=== PATIENT | male | born 1950 | race Caucasian/White ===

== ENCOUNTER 2022-02-09 21:42 | Emergency (ER) | payer MEDICARE, SELFPAY ==
[2022-02-09 21:54] VITALS: BP 177/92; PULSE 65; RESP 20; TEMP 36.7; O2SAT 97
[2022-02-09] MEDS: sodium chloride 0.9% 1,000 ML 999 ML IV (22:23)
[2022-02-09] MEDS: ondansetron 2 mg/ML SDV 2 mL 4 MG IVP (22:25)
[2022-02-09 22:28] VITALS: RESP 18; O2SAT 97
[2022-02-09] MEDS: HYDROmorphone 1 mg/mL INJ 1 mL IVP (22:28)
[2022-02-09] MEDS: diphenhydrAMINE 50 mg/mL SDV 1mL 25 MG IVP (22:31)
[2022-02-09 22:51] LABS: Basophils % 0.3 %; Eosinophils # 0.2 10^3/uL (0.0-0.8); Eosinophils % 2.4 %; Hematocrit 40.8 % (42.0-52.0); Hemoglobin 13.5 g/dL (11.7-16.6); Lymphocytes # 0.9 10^3/uL (0.8-4.8); Lymphocytes % 12.4 %; Mean Corpuscular HGB Conc 33.1 g/dL (30.0-36.0); Mean Corpuscular Volume 96.7 fl (80-94); Mean Platelet Volume 9.9 fL (7.4-10.4); Monocytes # 0.7 10^3/uL (0.2-0.9); Monocytes % 8.6 %; Neutrophils # 5.75 10^3/uL (1.8-7.7); Neutrophils % 75.8 %; Nucleated Red Blood Cells % 0 %; Platelet Count 161 10^3/cmm (130-400); Red Blood Count 4.22 10^6/uL (4.1-5.3); Red Cell Distribution Width 12.6 % (12.1-15.1); White Blood Count 7.6 10^3/uL (4.0-10.0)
[2022-02-09 23:08] LABS: INR 1.04 (0.8-1.2); Partial Thromboplastin Time 22.8 SECONDS (23.9-36.7)
[2022-02-09 23:09] LABS: Fibrinogen 259 mg/dL (174-498)
[2022-02-09 23:14] LABS: Alanine Aminotransferase 12 U/L (0-41); Albumin Level 4.6 g/dL (3.5-5.2); Alkaline Phosphatase 88 IU/L (40-130); Anion Gap 15.1 (5-19); Aspartate Amino Transferase 14 U/L (0-40); Blood Urea Nitrogen 26 mg/dL (8-23); Calcium 9.3 mg/dL (8.5-10.5); Carbon Dioxide 25 mmol/L (22-29); Chloride 104 mmol/L (98-107); Creatine Phosphokinase 113 U/L (39-308); Globulin 2.6 g/dL (1.3-4.6); Glucose 102 mg/dL (65-115); Osmolality Calculated 295 mOsm/kg (285-295); Potassium 4.1 mmol/L (3.5-5.1); Sodium 140 mmol/L (136-145); Total Bilirubin 0.4 mg/dL (0.15-1.2); Total Protein 7.2 g/dL (6.6-8.7)
--- NOTE | 2022-02-09 23:28 | ED_ITS ---
HPI - Extremity Problem General: Chief complaint: Extremity Injury, Lower Stated complaint: LT foot snake bite-copperhead Time Seen by Provider: 02/09/22 21:47 History of Present Illness: 71-year-old gentleman who 1 hour prior to arrival was bitten by a snake on the left foot. He is positive that that snake was a copperhead. It was seen within the last 24 hours in that same area. He is somewhat nauseated, but has not thrown up. He denies any chest discomfort, shortness of breath, retching. He does note his foot hurts, but the pain has not spread significantly MD Complaint: extremity pain and extremity swelling Onset (ago): minute(s) (60) Location: left and lower extremity Quality: stabbing and aching Radiation: none Relieving factors: nothing Exacerbating factors: range of motion and weight bearing Associated symptoms: Deny chest pain, fever(s), myalgias, rash or short of breath Context: other Review of Systems Const: Denies: fever(s) ENMT: Denies: throat pain Card: Denies: chest pain Resp: Denies: dyspnea GI: Reports: nausea; Denies: abdominal pain or vomiting Skin/Breast: Denies: rash Physical Exam Const: COMMON NORMALS: no acute distress HENMT: COMMON NORMALS: normocephalic and atraumatic HEAD & SCALP: normocephalic and atraumatic Eye: COMMON NORMALS: EOMs intact bilaterally Neck/C-Spine: GENERAL: Yes trachea midline and No anterior neck swelling Chest: CHEST: Yes Symmetrical chest wall rise Resp: COMMON NORMALS: normal respiratory effort, No use of accessory muscles and clear to auscultation bilaterally AUSCULTATION: clear to auscultation bilaterally Cardio: COMMON NORMALS: regular rate and regular rhythm RATE: regular rate RHYTHM: regular rhythm GI: COMMON NORMALS: Normal to inspection, nondistended, normoactive bowel sounds present, Soft to palpation and non-tender PALPATION: Yes Soft to palpation Extremity: NARRATIVE EXTREMITY EXAM: Exam the left lower extremity reveals 2 puncture wounds over the dorsum of the left foot. There is localized swelling. There is tenderness that stretches not across the ankle joint. There is mild ecchymosis. No redness or streaking. Mild heat. Sensation is intact. Capillary refill is normal Neuro: [place] COMA SCALE: document GCS findings [place] coma scale eye opening: Spontaneous [place] coma scale verbal response: Orientated [place] coma scale motor response: Obey commands [place] coma scale total score: 15 Course Vital Signs: Vital signs: Vital Signs Temperature 98.0 F 02/09/22 21:54 Pulse Rate 92 02/10/22 05:19 Respiratory Rate 17 02/10/22 05:19 Blood Pressure 178/101 02/10/22 05:19 Pulse Oximetry 90 02/10/22 05:19 MDM - Extremity (Nontraumatic) Medical Decision Making Patient bitten by a venomous snake. He has been observed for 8 hours in the emergency department. Over the last 4 hours he has not exhibited significant worsening of pain or swelling, nor migration further up the leg. Pain is still at his ankle. No increasing redness, warmth, or streaking. The patient does have significant swelling and significant discomfort. He is given Solu-Medrol, Benadryl, pain medication. Solu-Medrol is repeated. He is receiving tetanus. He did not meet criteria for antivenom treatment. He did not develop systemic symptoms, nor did he change coagulation studies throughout his stay significantly. He will therefore be allowed home to elevate, at this point he may begin to use ice for swelling as well. Empiric antibiotic therapy is not indicated. Lab Data : 02/10/22 04:55 02/09/22 22:20 Laboratory Results WBC 11.8 10^3/uL (4.0-10.0) H 02/10/22 04:55 RBC 4.33 10^6/uL (4.1-5.3) 02/10/22 04:55 Hgb 13.8 g/dL (11.7-16.6) 02/10/22 04:55 Hct 41.6 % (42.0-52.0) L 02/10/22 04:55 MCV 96.1 fl (80-94) H 02/10/22 04:55 MCH 31.9 pg (28.0-34.0) 02/10/22 04:55 MCHC 33.2 g/dL (30.0-36.0) 02/10/22 04:55 RDW 12.6 % (12.1-15.1) 02/10/22 04:55 Plt Count 139 10^3/cmm (130-400) 02/10/22 04:55 MPV 9.6 fL (7.4-10.4) 02/10/22 04:55 Neut % (Auto) 93.8 % 02/10/22 04:55 Lymph % (Auto) 3.8 % 02/10/22 04:55 [place] % (Auto) 1.4 % 02/10/22 04:55 Eos % (Auto) 0.1 % 02/10/22 04:55 Baso % (Auto) 0.3 % 02/10/22 04:55 Neut # (Auto) 11.09 10^3/uL (1.8-7.7) H 02/10/22 04:55 Lymph # (Auto) 0.5 10^3/uL (0.8-4.8) L 02/10/22 04:55 [place] # (Auto) 0.2 10^3/uL (0.2-0.9) 02/10/22 04:55 Eos # (Auto) 0.0 10^3/uL (0.0-0.8) 02/10/22 04:55 Baso # (Auto) 0.0 10^3/uL (0.0-0.1) 02/10/22 04:55 Nucleated RBC % (auto) 0 % 02/10/22 04:55 Nucleated RBCs # 0.0 /100WBC 02/10/22 04:55 PT 14.00 SECONDS (12.1-14.9) 02/10/22 04:55 INR 1.05 (0.8-1.2) 02/10/22 04:55 APTT 22.8 SECONDS (23.9-36.7) L 02/09/22 22:20 Fibrinogen 258 mg/dL (174-498) 02/10/22 04:55 Fibrin Degrad Products Pos, >=40 ug/mL (NEG) H 02/09/22 22:20 Sodium 140 mmol/L (136-145) 02/09/22 22:20 Potassium 4.1 mmol/L (3.5-5.1) 02/09/22 22:20 Chloride 104 mmol/L (98-107) 02/09/22 22:20 Carbon Dioxide 25 mmol/L (22-29) 02/09/22 22:20 Anion Gap 15.1 (5-19) 02/09/22 22:20 BUN 26 mg/dL (8-23) H 02/09/22 22:20 Creatinine 1.4 mg/dL (0.7-1.2) H 02/09/22 22:20 GFR Calculation Not Reportable 02/09/22 22:20 Glucose 102 mg/dL (65-115) 02/09/22 22:20 Calculated Osmolality 295 mOsm/kg (285-295) 02/09/22 22:20 Calcium 9.3 mg/dL (8.5-10.5) 02/09/22 22:20 Total Bilirubin 0.4 mg/dL (0.15-1.2) 02/09/22 22:20 AST 14 U/L (0-40) 02/09/22 22:20 ALT 12 U/L (0-41) 02/09/22 22:20 Alkaline Phosphatase 88 IU/L (40-130) 02/09/22 22:20 Creatine Kinase 113 U/L (39-308) 02/09/22 22:20 Total Protein 7.2 g/dL (6.6-8.7) 02/09/22 22:20 Albumin 4.6 g/dL (3.5-5.2) 02/09/22 22:20 Globulin 2.6 g/dL (1.3-4.6) 02/09/22 22:20 Discharge Plan Discharge Patient Disposition: Home Clinical Impression: Poisonous snake bite Condition: Stable Prescriptions: New Percocet 7.5-325 mg tablet 1 tab PO Q6H PRN (Reason: pain) Qty: 10 0RF Medrol (Jeison) 4 mg tablets,dose pack See Rx Instructions .ROUTE .COMPLEX Qty: 21 0RF Rx Instructions: orally per package directions Discharge Orders: Discharge ED (Routine); Ordered 02/10/22 Ordered By: Dwayne Roy Referrals: Zainab Padilla FNP [Primary Care Provider] - 1-3 days Patient Instructions: Snake Bite (ED), Opioid Safety Activity Restrictions/Additional Instructions: It is very important that your leg stays elevated for at least the next 24 hours. You may use ice for pain at this point, which can help with swelling as well. Medications as directed. Return for worsening pain or swelling despite treatment, movement of pain up the leg, particularly crossing the knee, increasing redness, warmth, or streaking, fever greater than 100, vomiting, shortness of breath, or any other concerning symptoms. Coding Level of Care Code ED Coding Coordinator for Chg Fwd Exam Comprehensive
[2022-02-10] MEDS: amlodipine 10 mg Tablet PO
[2022-02-10] MEDS: labetalol 5 mg/mL SDV 20mL 20 MG IVP (00:01)
[2022-02-10 05:04] LABS: Basophils % 0.3 %; Eosinophils % 0.1 %; Hematocrit 41.6 % (42.0-52.0); Hemoglobin 13.8 g/dL (11.7-16.6); Lymphocytes # 0.5 10^3/uL (0.8-4.8); Lymphocytes % 3.8 %; Mean Corpuscular HGB Conc 33.2 g/dL (30.0-36.0); Mean Corpuscular Hemoglobin 31.9 pg (28.0-34.0); Mean Corpuscular Volume 96.1 fl (80-94); Mean Platelet Volume 9.6 fL (7.4-10.4); Monocytes # 0.2 10^3/uL (0.2-0.9); Monocytes % 1.4 %; Neutrophils # 11.09 10^3/uL (1.8-7.7); Neutrophils % 93.8 %; Nucleated Red Blood Cells % 0 %; Platelet Count 139 10^3/cmm (130-400); Red Blood Count 4.33 10^6/uL (4.1-5.3); Red Cell Distribution Width 12.6 % (12.1-15.1); White Blood Count 11.8 10^3/uL (4.0-10.0)
[2022-02-10] MEDS: HYDROmorphone 1 mg/mL INJ 1 mL IVP (05:14)
[2022-02-10 05:15] LABS: INR 1.05 (0.8-1.2)
[2022-02-10 05:16] LABS: Fibrinogen 258 mg/dL (174-498)
[2022-02-10 05:19] VITALS: BP 178/101; PULSE 92; RESP 17; O2SAT 90
[2022-02-10] MEDS: tetanus-dipt-pertussis 0.5 mL SDV IM (06:06)
--- NOTE | 2022-02-10 14:24 | PC.NURSE ---
This RN wasted 0.5mg Hydromorphone (Dilaudid) with Julio Cesar Phan RN prior to administration. We were unable to waste in Pyxis prior to patient depopulating from the system. Pharmacist Tyrel notified.
== END 2022-02-10 07:46 | disposition home or self-care (01) ==
PROVIDERS: Emergency Provider Emergency Medicine; PCP Nurse Practitioner Family
DX: T63.091A Toxic effect of venom of other snake, accidental (unintentional), initial encounter (principal)
CPT/HCPCS: 80053; 82550; 85025; 85362; 85384; 85610; 85730; 90471; 90715; 96361; 96374; 96375; 96376; 99284; J1170; J1200; J2405; J2930; J3490; J7030

== ENCOUNTER 2022-12-11 10:10 | Outpatient (CLI) | payer OTHER, SELFPAY ==
--- NOTE | 2022-12-11 10:32 | CT_ITS ---
WS: [id number] CT FACIAL BONES TECHNIQUE: Contrast-enhanced facial bones with coronal and sagittal reformatted images. CLINICAL INFORMATION: HISTORY OF PAROTID CANCER COMPARISON: None available. DLP: 606.[address] scans at [facility] use at least one of these dose optimization techniques: automated e xposure control; mA and/or kV adjustment per patient size (includes targeted exams where dose is matc hed to clinical indication); or iterative reconstruction. FINDINGS: Prior postoperative changes resection of the LEFT parotid gland with surgical clips in the LEFT neck. Associated cervical lymph node dissection. Postoperative changes canal wall down LEFT mastoidectomy. Resection of the LEFT mandibular condyle. Resection LEFT submandibular gland. Normal posterior nasopharynx. Normal parapharyngeal fat. Moderate carotid bulb calcification bilatera lly. No visualized residual or recurrent enhancing mass in the LEFT neck. Paranasal sinuses are well aerated. RIGHT mastoid air cells well aerated. Vascular calcification. Normal posterior fossa. Partia lly visualized intracranial contents appear normal. Normal C1-C2 articulation. CT/CT facial bones w con [id number] IMPRESSION: 1. No evidence of residual or recurrent disease. 2. Prior postoperative changes resection LEFT parotid gland with a LEFT cervic al lymph node dissection. Resection of the LEFT submandibular gland. 3. Resection of the LEFT mandibular condyle. 4. Prior postoperative changes canal wall down LEFT mastoidectomy. 5. Postoperative and posttherapeutic changes in the LEFT neck soft tissues.
[2022-12-11 10:55] LABS: Blood Urea Nitrogen 18 mg/dL (8-23)
[2022-12-11] MEDS: iohexol 350 mg/mL 500 mL Btl (per mL) IV (11:05)
== END 2022-12-11 10:11 | disposition home or self-care (01) ==
PROVIDERS: PCP Nurse Practitioner Family; Visit Provider Family Medicine
DX: Z85.89 Personal history of malignant neoplasm of other organs and systems (principal)
CPT/HCPCS: 70487; 82565; 84520; Q9967

== ENCOUNTER 2023-04-04 20:00 | Outpatient (CLI) | payer OTHER, SELFPAY | END 2023-04-04 20:01 | disposition home or self-care (01) | LOC: SLEEP 04-05 05:21 | PROVIDERS: PCP Nurse Practitioner Family; Visit Provider Family Medicine | DX: G47.10 Hypersomnia, unspecified (principal) | CPT/HCPCS: 95810 ==

== ENCOUNTER 2023-04-29 15:04 | Outpatient (CLI) | payer OTHER, SELFPAY ==
--- NOTE | 2023-04-29 | MR_ITS ---
WS: [id number] MRI NECK WITH CONTRAST TECHNIQUE: Noncontrast axial T1, axial T2 FSE fat sat, coronal T2 fat sat, coronal T1, coronal T1 fat sat, sagittal T2 fat sat, plus contrast enhanced coronal, sagittal, and axial T1 fat sat images obta ined. 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 Associated cervical lymph node dissection. Postoperative changes canal wall down LEFT mas toidectomy. Resection of the LEFT mandibular condyle. Resection LEFT submandibular gland. Normal bone marrow signal in the residual mandible. No evidence of osteomyelitis or radiation necrosi s. No evidence of enhancing mass or lesion in the in the resection cavity. Paranasal sinuses are well aerated. Mucosal thickening in the ethmoid air cells. Normal posterior jesus opharynx. Normal vascular flow voids at the skull base. RIGHT charles bullosa. Visualized orbits are normal. Upper cervical spine and brainstem are normal in appearance. IMPRESSION: 1. Normal bone marrow signal in the residual mandible. No evidence of osteomyelitis or radiation nec rosis 2. Prior postoperative changes resection of the LEFT parotid gland and LEFT submandibular gland. 3. Prior postoperative changes LEFT mastoid with canal wall down mastoidectomy. 4. Resection LEFT mandibular condyle.
[2023-04-29] MEDS: gadobenate dimeglumine 20 mL vial IV (16:41)
== END 2023-04-29 15:05 | disposition home or self-care (01) ==
PROVIDERS: PCP Nurse Practitioner Family; Visit Provider Family Medicine
DX: Z85.858 Personal history of malignant neoplasm of other endocrine glands (principal); Z01.89 Encounter for other specified special examinations
CPT/HCPCS: 70543; A9577

== ENCOUNTER 2023-04-29 23:51 | Emergency (ER) | payer OTHER, SELFPAY ==
[2023-04-29 23:57] VITALS: BP 143/82; PULSE 119; RESP 18; TEMP 37.1; O2SAT 94; BMI 34.9
--- NOTE | 2023-04-30 00:03 | XRR_ITS ---
PROCEDURE INFORMATION: Exam: XR Chest Exam date and time: 04/30/2023 12:10 AM Age: 72 years old Clinical indication: Cough and fever; Patient HX: HX of adenoid cystic carcinoma; Additional info: Fever, cough TECHNIQUE: Imaging protocol: Radiologic exam of the chest. Views: 1 view. COMPARISON: MR orbit face neck wo/w* [id number] 04/29/2023 3:45 PM FINDINGS: Lungs: There is vague opacity in the periphery of the right lung and left basilar atelectasis noted. Medial right basilar opacity is indeterminate. Pleural spaces: Unremarkable. No pleural effusion. No pneumothorax. Heart/Mediastinum: Unremarkable. No cardiomegaly. Bones/joints: Unremarkable. XR/XR chest 1V portable [id number] IMPRESSION: Vague opacity right mid lung may represent atelectasis. Medial basilar opacity on the right. Suggest noncontrast CT of the thorax to further assess.
--- NOTE | 2023-04-30 00:04 | W.ED.HA ---
Documented by User: ELDA Alamo 04/30/23 00:09 HPI - Headache General: Chief Complaint: Headache Stated Complaint: HEADACHE Time Seen by Provider: 04/29/23 23:56 History of Present Illness: 72-year-old male patient comes in today for complaints of fever and headache starting this evening. Spouse reports that he started shaking and had a temperature of 101. Patient was given some acetaminophen at that time. After about 30 minutes the spouse noted the temperature had raised to 105 and she called EMS. On arrival EMS noted that the temperature had come back down to 98.8. And patient was more lucid. Patient reports feeling unwell. Patient appears nontoxic. Patient appears in no pain. Patient reports some headache. Patient has a history of BPH, cancer of the neck, and some mildly elevated blood pressure that he does not take medication for. Patient reports some constipation with diarrhea on and off for the last 2 weeks. Associated symptoms: Reports fever(s) Review of Systems Const: Reports: fever(s) Neuro: Reports: headache(s) Physical Exam Const: COMMON NORMALS: alert HENMT: COMMON NORMALS: normocephalic HEAD & SCALP: normocephalic Neck/C-Spine: COMMON NORMALS: full ROM and no meningeal signs Resp: COMMON NORMALS: normal respiratory effort and clear to auscultation bilaterally AUSCULTATION: clear to auscultation bilaterally Cardio: COMMON NORMALS: regular rhythm RATE: tachycardic RHYTHM: regular rhythm GI: COMMON NORMALS: Soft to palpation AUSCULTATION: Yes normoactive bowel sounds PALPATION: Yes Soft to palpation and Yes Tenderness to palpation present (GI) Details: LLQ : COMMON NORMALS: Yes no CVA tenderness BLADDER/KIDNEY EXAM: Yes no CVA tenderness Back/Pelvis: COMMON NORMALS: no CVA tenderness Extremity: COMMON NORMALS: full ROM Neuro: SENSORIUM/ORIENTATION: Yes alert MENINGEAL SIGNS: Yes no meningeal signs Skin: COMMON NORMALS: turgor normal GENERAL SKIN EXAM: turgor normal Course Vital Signs: Vital signs: Vital Signs Temperature 98.8 F 04/29/23 23:57 Pulse Rate 95 04/30/23 02:51 Respiratory Rate 16 04/30/23 02:51 Blood Pressure 114/63 04/30/23 02:51 Pulse Oximetry 91 04/30/23 02:51 Oxygen Delivery Me thod Room Air 04/30/23 02:51 MDM - Headache Medical Decision Making Patient was brought in today for complaints of headache and fever. Patient appears mildly unwell but not toxic. Lungs are clear to auscultation. Skin is warm and dry turgor is normal. Abdomen soft with some left lower quadrant abdominal tenderness. Vital signs are normal except for some mild elevation of blood pressure and pulse. Differential diagnosis includes fever of unknown origin, viral syndrome, pneumonia, diverticulitis, urinary tract infection. Lab Data 04/30/23 00:30 04/30/23 00:30 Radiology Impressions Chest X-Ray 04/30/23 00:03 IMPRESSION: Vague opacity right mid lung may represent atelectasis. Medial basilar opacity on the right. Suggest noncontrast CT of the thorax to further assess. Abdomen/Pelvis CT 04/30/23 00:09 IMPRESSION: Diverticulosis. Renal cysts. Pleural-based low-density pulmonary nodules and masses. Recommend contrast-enhanced CT of the thorax to further assess. Fleischner society criteria do not apply due to incomplete workup. 2.8 cm infrarenal abdominal aortic aneurysm. Follow-up aortic ultrasound in 6-12 months is recommended. Shotty nonspecific left inguinal lymphadenopathy. COMMENTS: Consistent with the [employer]'s Incidental Findings Committee white paper (J Am Sharon Radiol 2018): Any incidental renal lesion less than 1 cm or classified as too small to characterize, or any incidental cystic renal lesion characterized as simple-appearing, is likely benign. No follow-up imaging is recommended for these lesions per consensus recommendations based on imaging criteria. Laboratory Results WBC 13.40 10^3/uL (3.29-11.43) H 04/30/23 00:30 RBC 4.44 10^6/uL (3.85-5.65) 04/30/23 00:30 Hgb 14.10 g/dL (11.27-16.99) 04/30/23 00:30 Hct 41.6 % (37-53) 04/30/23 00:30 MCV 93.7 fl (82-101) 04/30/23 00:30 MCH 31.8 pg (27-33) 04/30/23 00:30 MCHC 33.9 g/dL (30-55) 04/30/23 00:30 RDW 12.5 % (12.1-15.1) 04/30/23 00:30 Plt Count 147 10^3/cmm (157-399) L 04/30/23 00:30 MPV 9.4 fL (7.4-10.4) 04/30/23 00:30 Neut % (Auto) 90.3 % 04/30/23 00:30 Lymph % (Auto) 1.9 % 04/30/23 00:30 [place] % (Auto) 6.8 % 04/30/23 00:30 Eos % (Auto) 0.2 % 04/30/23 00:30 Baso % (Auto) 0.1 % 04/30/23 00:30 Neut # (Auto) 12.09 10^3/uL (1.8-7.7) H 04/30/23 00:30 Lymph # (Auto) 0.3 10^3/uL (0.8-4.8) L 04/30/23 00:30 [place] # (Auto) 0.9 10^3/uL (0.2-0.9) 04/30/23 00:30 Eos # (Auto) 0.0 10^3/uL (0.0-0.8) 04/30/23 00:30 Baso # (Auto) 0.0 10^3/uL (0.0-0.1) 04/30/23 00:30 Nucleated RBC % (auto) 0 % 04/30/23 00:30 Nucleated RBCs # 0.0 /100WBC 04/30/23 00:30 Sodium 139 mmol/L (136-145) 04/30/23 00:30 Potassium 4.1 mmol/L (3.5-5.1) 04/30/23 00:30 Chloride 103 mmol/L (98-107) 04/30/23 00:30 Carbon Dioxide 24 mmol/L (22-29) 04/30/23 00:30 Anion Gap 16.1 (5-19) 04/30/23 00:30 BUN 21 mg/dL (8-23) 04/30/23 00:30 Creatinine 1.6 mg/dL (0.7-1.2) H 04/30/23 00:30 GFR Calculation Not Reportable 04/30/23 00:30 Glucose 137 mg/dL (65-115) H 04/30/23 00:30 Calculated Osmolality 293 mOsm/kg (285-295) 04/30/23 00:30 Lactic Acid 1.4 mmol/L (0.5-2.2) 04/30/23 00:30 Calcium 9.4 mg/dL (8.5-10.5) 04/30/23 00:30 Total Bilirubin 0.7 mg/dL (0.15-1.2) 04/30/23 00:30 AST 13 U/L (0-40) 04/30/23 00:30 ALT 11 U/L (0-41) 04/30/23 00:30 Alkaline Phosphatase 87 U/L (40-130) 04/30/23 00:30 C-Reactive Protein 14.9 mg/L (0.0-4.9) H 04/30/23 00:30 Total Protein 7.1 g/dL (6.6-8.7) 04/30/23 00:30 Albumin 4.4 g/dL (3.5-5.2) 04/30/23 00:30 Globulin 2.7 g/dL (1.3-4.6) 04/30/23 00:30 Urine Color Yellow (Yellow) 04/30/23 02:30 Urine Appearance Clear (CLEAR) 04/30/23 02:30 Urine pH 6 (5-7) 04/30/23 02:30 Ur Specific [place] 1.015 (1.005-1.030) 04/30/23 02:30 Urine Protein Neg (Negative) 04/30/23 02:30 Urine Glucose (UA) Norm (Normal) 04/30/23 02:30 Urine Ketones Negative (Negative) 04/30/23 02:30 Urine Blood 3+ (Negative) H 04/30/23 02:30 Urine Nitrate Negative (Negative) 04/30/23 02:30 Urine Bilirubin Neg (Negative) 04/30/23 02:30 Urine Urobilinogen Neg mg/dL (Negative) 04/30/23 02:30 Ur Leukocyte Esterase Negative (Negative) 04/30/23 02:30 Urine RBC 5-10 /hpf (0-2) H 04/30/23 02:30 Urine WBC None /hpf (0-5) 04/30/23 02:30 Ur Squamous Epith Cells None /hpf (0-5) 04/30/23 02:30 Amorphous Sediment Not Reportable 04/30/23 02:30 Urine Bacteria Trace /hpf (NONE) 04/30/23 02:30 Urine Mucus 1+ /hpf 04/30/23 02:30 Nasal Influ A H1 2009 PCR Not detected (NOT DETECT) 04/30/23 00:30 Adenovirus (PCR) Not detected (NOT DETECT) 04/30/23 00:30 C. pneumoniae DNA (PCR) Not detected (NOT DETECT) 04/30/23 00:30 Coronavirus 229E (PCR) Not detected (NOT DETECT) 04/30/23 00:30 Human Metapneumovir PCR Not detected (NOT DETECT) 04/30/23 00:30 Influenza A (H1) PCR Not detected (NOT DETECT) 04/30/23 00:30 Influenza A (H3) PCR Not detected (NOT DETECT) 04/30/23 00:30 Influenza Type A (PCR) Not detected (NOT DETECT) 04/30/23 00:30 Influenza Type B (PCR) Not detected (NOT DETECT) 04/30/23 00:30 M. pneumoniae (PCR) Not detected (NOT DETECT) 04/30/23 00:30 Parainfluenza 1 (PCR) Not detected (NOT DETECT) 04/30/23 00:30 Parainfluenza 2 (PCR) Not detected (NOT DETECT) 04/30/23 00:30 Parainfluenza 3 (PCR) Not detected (NOT DETECT) 04/30/23 00:30 Parainfluenza 4 (PCR) Not detected (NOT DETECT) 04/30/23 00:30 RSV Type A (PCR) Not detected (NOT DETECT) 04/30/23 00:30 RSV Type B (PCR) Not detected (NOT DETECT) 04/30/23 00:30 Entero/Rhino (PCR) Not detected (NOT DETECT) 04/30/23 00:30 SARS-CoV-2 (PCR) Not detected (NOT DETECT) 04/30/23 00:30 Discharge Plan Discharge Patient Disposition: Home Clinical Impression: Pneumonia Condition: Stable Prescriptions: New cefdinir 300 mg capsule 300 mg PO BID 7 Days Qty: 14 0RF azithromycin 250 mg tablet See Rx Instructions .ROUTE .COMPLEX Qty: 6 0RF Rx Instructions: For 250 mg dose pack: take 500 mg today (day 1), then 250 mg for 4 days (days 2-5) No Action Percocet 7.5-325 mg tablet 1 tab PO Q6H PRN (Reason: pain) Qty: 10 0RF Medrol (Jeison) 4 mg tablets,dose pack See Rx Instructions .ROUTE .COMPLEX Qty: 21 0RF Rx Instructions: orally per package directions Discharge Orders: Discharge ED (Routine); Ordered 04/30/23 Ordered By: Dwayne Roy Referrals: Zainab Pdailla FNP [Nurse Practitioner] - Patient Instructions: Pneumonia (ED) Activity Restrictions/Additional Instructions: Return for worsening, mental status changes, continued fever despite 2-3 more doses of antibiotics, significant neck pain, any other concerning symptoms. Medications as directed. Watch temperatures closely and treat accordingly. Stay hydrated. Coding Level of Care Code ED Final Assembly And Packing Supervisor for Chg Fwd Documented by User: Dwayne Roy, 04/30/23 04:02 HPI - Headache General: Chief Complaint: Headache Stated Complaint: HEADACHE Time Seen by Provider: 04/29/23 23:56 Course Vital Signs: Vital signs: Vital Signs Temperature 98.8 F 04/29/23 23:57 Pulse Rate 95 04/30/23 02:51 Respiratory Rate 16 04/30/23 02:51 Blood Pressure 114/63 04/30/23 02:51 Pulse Oximetry 91 04/30/23 02:51 Oxygen Delivery Me thod Room Air 04/30/23 02:51 MDM - Headache Medical Decision Making Patient was brought in today for complaints of headache and fever. Patient appears mildly unwell but not toxic. Lungs are clear to auscultation. Skin is warm and dry turgor is normal. Abdomen soft with some left lower quadrant abdominal tenderness. Vital signs are normal except for some mild elevation of blood pressure and pulse. Differential diagnosis includes fever of unknown origin, viral syndrome, pneumonia, diverticulitis, urinary tract infection. Patient checked out to me by ELDA Ferro at shift change. I agree with his history, evaluation, and initial management. This patient has had a headache, and fever at home. The patient is moving his neck freely, no meningeal signs. White blood cell count is 13.4. Hemoglobin is normal. Creatinine is 1.6. This is his baseline. Respiratory panel is negative. Chest x-ray shows opacity in the right midlung in this setting likely pneumonia. Urinalysis is not remarkable. His CRP is only 15. CT of the abdomen is done because of a history of constipation and diarrhea with fever. It shows some pleural-based low-density pulmonary nodules and masses. No acute findings. He is given 1 g of IV Rocephin. He will be covered with Zithromax as well. Close outpatient follow-up. He may need an outpatient follow-up CT scanning of the chest as well. He was told about reactive lymph nodes in his chest, and that he may need follow-up imaging as his pneumonia improves. He demonstrates understanding. Lab Data 04/30/23 00:30 04/30/23 00:30 Radiology Impressions Chest X-Ray 04/30/23 00:03 IMPRESSION: Vague opacity right mid lung may represent atelectasis. Medial basilar opacity on the right. Suggest noncontrast CT of the thorax to further assess. Abdomen/Pelvis CT 04/30/23 00:09 IMPRESSION: Diverticulosis. Renal cysts. Pleural-based low-density pulmonary nodules and masses. Recommend contrast-enhanced CT of the thorax to further assess. Fleischner society criteria do not apply due to incomplete workup. 2.8 cm infrarenal abdominal aortic aneurysm. Follow-up aortic ultrasound in 6-12 months is recommended. Shotty nonspecific left inguinal lymphadenopathy. COMMENTS: Consistent with the [employer]'s Incidental Findings Committee white paper (J Am Sharon Radiol 2018): Any incidental renal lesion less than 1 cm or classified as too small to characterize, or any incidental cystic renal lesion characterized as simple-appearing, is likely benign. No follow-up imaging is recommended for these lesions per consensus recommendations based on imaging criteria. Laboratory Results WBC 13.40 10^3/uL (3.29-11.43) H 04/30/23 00:30 RBC 4.44 10^6/uL (3.85-5.65) 04/30/23 00:30 Hgb 14.10 g/dL (11.27-16.99) 04/30/23 00:30 Hct 41.6 % (37-53) 04/30/23 00:30 MCV 93.7 fl (82-101) 04/30/23 00:30 MCH 31.8 pg (27-33) 04/30/23 00:30 MCHC 33.9 g/dL (30-55) 04/30/23 00:30 RDW 12.5 % (12.1-15.1) 04/30/23 00:30 Plt Count 147 10^3/cmm (157-399) L 04/30/23 00:30 MPV 9.4 fL (7.4-10.4) 04/30/23 00:30 Neut % (Auto) 90.3 % 04/30/23 00:30 Lymph % (Auto) 1.9 % 04/30/23 00:30 [place] % (Auto) 6.8 % 04/30/23 00:30 Eos % (Auto) 0.2 % 04/30/23 00:30 Baso % (Auto) 0.1 % 04/30/23 00:30 Neut # (Auto) 12.09 10^3/uL (1.8-7.7) H 04/30/23 00:30 Lymph # (Auto) 0.3 10^3/uL (0.8-4.8) L 04/30/23 00:30 [place] # (Auto) 0.9 10^3/uL (0.2-0.9) 04/30/23 00:30 Eos # (Auto) 0.0 10^3/uL (0.0-0.8) 04/30/23 00:30 Baso # (Auto) 0.0 10^3/uL (0.0-0.1) 04/30/23 00:30 Nucleated RBC % (auto) 0 % 04/30/23 00:30 Nucleated RBCs # 0.0 /100WBC 04/30/23 00:30 Sodium 139 mmol/L (136-145) 04/30/23 00:30 Potassium 4.1 mmol/L (3.5-5.1) 04/30/23 00:30 Chloride 103 mmol/L (98-107) 04/30/23 00:30 Carbon Dioxide 24 mmol/L (22-29) 04/30/23 00:30 Anion Gap 16.1 (5-19) 04/30/23 00:30 BUN 21 mg/dL (8-23) 04/30/23 00:30 Creatinine 1.6 mg/dL (0.7-1.2) H 04/30/23 00:30 GFR Calculation Not Reportable 04/30/23 00:30 Glucose 137 mg/dL (65-115) H 04/30/23 00:30 Calculated Osmolality 293 mOsm/kg (285-295) 04/30/23 00:30 Lactic Acid 1.4 mmol/L (0.5-2.2) 04/30/23 00:30 Calcium 9.4 mg/dL (8.5-10.5) 04/30/23 00:30 Total Bilirubin 0.7 mg/dL (0.15-1.2) 04/30/23 00:30 AST 13 U/L (0-40) 04/30/23 00:30 ALT 11 U/L (0-41) 04/30/23 00:30 Alkaline Phosphatase 87 U/L (40-130) 04/30/23 00:30 C-Reactive Protein 14.9 mg/L (0.0-4.9) H 04/30/23 00:30 Total Protein 7.1 g/dL (6.6-8.7) 04/30/23 00:30 Albumin 4.4 g/dL (3.5-5.2) 04/30/23 00:30 Globulin 2.7 g/dL (1.3-4.6) 04/30/23 00:30 Urine Color Yellow (Yellow) 04/30/23 02:30 Urine Appearance Clear (CLEAR) 04/30/23 02:30 Urine pH 6 (5-7) 04/30/23 02:30 Ur Specific [place] 1.015 (1.005-1.030) 04/30/23 02:30 Urine Protein Neg (Negative) 04/30/23 02:30 Urine Glucose (UA) Norm (Normal) 04/30/23 02:30 Urine Ketones Negative (Negative) 04/30/23 02:30 Urine Blood 3+ (Negative) H 04/30/23 02:30 Urine Nitrate Negative (Negative) 04/30/23 02:30 Urine Bilirubin Neg (Negative) 04/30/23 02:30 Urine Urobilinogen Neg mg/dL (Negative) 04/30/23 02:30 Ur Leukocyte Esterase Negative (Negative) 04/30/23 02:30 Urine RBC 5-10 /hpf (0-2) H 04/30/23 02:30 Urine WBC None /hpf (0-5) 04/30/23 02:30 Ur Squamous Epith Cells None /hpf (0-5) 04/30/23 02:30 Amorphous Sediment Not Reportable 04/30/23 02:30 Urine Bacteria Trace /hpf (NONE) 04/30/23 02:30 Urine Mucus 1+ /hpf 04/30/23 02:30 Nasal Influ A H1 2009 PCR Not detected (NOT DETECT) 04/30/23 00:30 Adenovirus (PCR) Not detected (NOT DETECT) 04/30/23 00:30 C. pneumoniae DNA (PCR) Not detected (NOT DETECT) 04/30/23 00:30 Coronavirus 229E (PCR) Not detected (NOT DETECT) 04/30/23 00:30 Human Metapneumovir PCR Not detected (NOT DETECT) 04/30/23 00:30 Influenza A (H1) PCR Not detected (NOT DETECT) 04/30/23 00:30 Influenza A (H3) PCR Not detected (NOT DETECT) 04/30/23 00:30 Influenza Type A (PCR) Not detected (NOT DETECT) 04/30/23 00:30 Influenza Type B (PCR) Not detected (NOT DETECT) 04/30/23 00:30 M. pneumoniae (PCR) Not detected (NOT DETECT) 04/30/23 00:30 Parainfluenza 1 (PCR) Not detected (NOT DETECT) 04/30/23 00:30 Parainfluenza 2 (PCR) Not detected (NOT DETECT) 04/30/23 00:30 Parainfluenza 3 (PCR) Not detected (NOT DETECT) 04/30/23 00:30 Parainfluenza 4 (PCR) Not detected (NOT DETECT) 04/30/23 00:30 RSV Type A (PCR) Not detected (NOT DETECT) 04/30/23 00:30 RSV Type B (PCR) Not detected (NOT DETECT) 04/30/23 00:30 Entero/Rhino (PCR) Not detected (NOT DETECT) 04/30/23 00:30 SARS-CoV-2 (PCR) Not detected (NOT DETECT) 04/30/23 00:30 XR interpretation done by ED provider, pending radiology final review Discharge Plan Discharge Patient Disposition: Home Clinical Impression: Pneumonia Condition: Stable Prescriptions: New cefdinir 300 mg capsule 300 mg PO BID 7 Days Qty: 14 0RF azithromycin 250 mg tablet See Rx Instructions .ROUTE .COMPLEX Qty: 6 0RF Rx Instructions: For 250 mg dose pack: take 500 mg today (day 1), then 250 mg for 4 days (days 2-5) No Action Percocet 7.5-325 mg tablet 1 tab PO Q6H PRN (Reason: pain) Qty: 10 0RF Medrol (Jeison) 4 mg tablets,dose pack See Rx Instructions .ROUTE .COMPLEX Qty: 21 0RF Rx Instructions: orally per package directions Discharge Orders: Discharge ED (Routine); Ordered 04/30/23 Ordered By: Dwayne Roy Referrals: Zainab Padilla FNP [Nurse Practitioner] - Patient Instructions: Pneumonia (ED) Activity Restrictions/Additional Instructions: Return for worsening, mental status changes, continued fever despite 2-3 more doses of antibiotics, significant neck pain, any other concerning symptoms. Medications as directed. Watch temperatures closely and treat accordingly. Stay hydrated. Coding Level of Care Code ED Final Assembly And Packing Supervisor for Ellen Vitale
--- NOTE | 2023-04-30 00:09 | CTR_ITS ---
PROCEDURE INFORMATION: Exam: CT Abdomen And Pelvis Without Contrast Exam date and time: 04/30/2023 12:57 AM Age: 72 years old Clinical indication: Abdominal pain; Localized; Left lower quadrant (llq); Additional info: Llq pain, fever TECHNIQUE: Imaging protocol: Computed tomography of the abdomen and pelvis without contrast. Radiation optimization: All CT scans at this facility use at least one of these dose optimization techniques: automated exposure control; mA and/or kV adjustment per patient size (includes targeted exams where dose is matched to clinical indication); or iterative reconstruction. REPORTING DATA: Count of CT and Cardiac NM exams in prior 12 months: This patient has received [address] and 0 known cardiac nuclear medicine studies in the 12 months prior to the current study. COMPARISON: CR (CHEST, ) 04/30/2023 12:10 AM RADIATION DOSE METRICS: Total DLP (mGy-cm): 1228.56 FINDINGS: Lungs: There is gravity dependent change in the lung bases. A 9 x 6 mm subpleural calcified granuloma is noted along the medial aspect of the right middle lobe. There is a pleural-based 23 x 12 mm low-density nodule in the posterior aspect of the right lower lobe and a 3.4 x 2.2 cm mass along the medial aspect of the lower right middle lobe. Liver: Normal. No mass. Gallbladder and bile ducts: The gallbladder is contracted. Pancreas: Normal. No ductal dilation. Spleen: Normal. No splenomegaly. Adrenal glands: Normal. No mass. Kidneys and ureters: There is perinephric stranding, cortical and parapelvic cysts in the kidneys, largest exophytic from the left lower pole measuring 9.0 x 7.5 x 7.7 cm. There is no nephrolithiasis or hydronephrosis. Stomach and bowel: Diverticulosis is noted, mainly at the level of the sigmoid. Appendix: No evidence of appendicitis. Intraperitoneal space: Unremarkable. No free air. No significant fluid collection. Vasculature: There is a mild infrarenal abdominal aortic aneurysm measuring up to 2.8 x 2.6 cm which could be followed in 6-12 months with abdominal aortic ultrasound. Lymph nodes: Shotty left inguinal lymphadenopathy is noted measuring up to 2.7 cm. Please correlate clinically. Urinary bladder: The urinary bladder is partially distended. Reproductive: Unremarkable as visualized. Bones/joints: Degenerative changes are noted in the bones. The patient is post left hip arthroplasty. Numerous sclerotic foci are noted about the sacrum and iliac bones which are indeterminate, probably benign entity such as bone islands. Soft tissues: The patient appears to be post umbilical hernia repair. Other findings: Lack of intravenous contrast limits assessment. CT/CT abdomen pelvis wo con [id number] IMPRESSION: Diverticulosis. Renal cysts. Pleural-based low-density pulmonary nodules and masses. Recommend contrast-enhanced CT of the thorax to further assess. Fleischner society criteria do not apply due to incomplete workup. 2.8 cm infrarenal abdominal aortic aneurysm. Follow-up aortic ultrasound in 6-12 months is recommended. Shotty nonspecific left inguinal lymphadenopathy. COMMENTS: Consistent with the [employer]'s Incidental Findings Committee white paper (J Am Sharon Radiol 2018): Any incidental renal lesion less than 1 cm or classified as too small to characterize, or any incidental cystic renal lesion characterized as simple-appearing, is likely benign. No follow-up imaging is recommended for these lesions per consensus recommendations based on imaging criteria.
--- NOTE | 2023-04-30 00:33 | CTR_ITS ---
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 Radiation optimization: All CT scans at this facility use at least one of these dose optimization techniques: automated exposure control; mA and/or kV adjustment per patient size (includes targeted exams where dose is matched to clinical indication); or iterative reconstruction. REPORTING DATA: Count of CT and Cardiac NM exams in prior 12 months: This patient has received [address] and 0 known cardiac nuclear medicine studies in the 12 months prior to the current study. COMPARISON: MR orbit face neck wo/w* [id number] 04/29/2023 3:45 PM RADIATION DOSE METRICS: Total DLP (mGy-cm): 1209.58 FINDINGS: Tubes, catheters and devices: Dense metallic implant in the left orbit causes streaky artifact limiting assessment. Brain: There is no intracranial mass effect, midline shift, acute hemorrhage, extra-axial fluid collection or acute lobar infarct. Cerebral ventricles: No ventriculomegaly. Paranasal sinuses: A small amount of polypoid disease is noted in the dependent portion of the left sphenoid sinus. No fluid levels. Mastoid air cells: See below. Bones/joints: The patient is post left mastoidectomy and resection of the adjacent temporomandibular joint. Soft tissues: Unremarkable. CT/CT head wo con* [id number] IMPRESSION: No acute intracranial process.
[2023-04-30 00:39] LABS: Basophils % 0.1 %; Eosinophils % 0.2 %; Hematocrit 41.6 % (37-53); Lymphocytes # 0.3 10^3/uL (0.8-4.8); Lymphocytes % 1.9 %; Mean Corpuscular HGB Conc 33.9 g/dL (30-55); Mean Corpuscular Hemoglobin 31.8 pg (27-33); Mean Corpuscular Volume 93.7 fl (82-101); Mean Platelet Volume 9.4 fL (7.4-10.4); Monocytes # 0.9 10^3/uL (0.2-0.9); Monocytes % 6.8 %; Neutrophils # 12.09 10^3/uL (1.8-7.7); Neutrophils % 90.3 %; Nucleated Red Blood Cells % 0 %; Platelet Count 147 10^3/cmm (157-399); Red Blood Count 4.44 10^6/uL (3.85-5.65); Red Cell Distribution Width 12.5 % (12.1-15.1)
[2023-04-30] MEDS: sodium chloride 0.9% 500 ML 999 ML IV (00:42)
[2023-04-30 00:59] LABS: Alanine Aminotransferase 11 U/L (0-41); Albumin Level 4.4 g/dL (3.5-5.2); Alkaline Phosphatase 87 U/L (40-130); Aspartate Amino Transferase 13 U/L (0-40); Blood Urea Nitrogen 21 mg/dL (8-23); C Reactive Protein 14.9 mg/L (0.0-4.9); Calcium 9.4 mg/dL (8.5-10.5); Carbon Dioxide 24 mmol/L (22-29); Chloride 103 mmol/L (98-107); Globulin 2.7 g/dL (1.3-4.6); Glucose 137 mg/dL (65-115); Osmolality Calculated 293 mOsm/kg (285-295); Sodium 139 mmol/L (136-145); Total Bilirubin 0.7 mg/dL (0.15-1.2); Total Protein 7.1 g/dL (6.6-8.7)
[2023-04-30 01:00] LABS: Anion Gap 16.1 (5-19); Lactic Sepsis W/Reflex 1.4 mmol/L (0.5-2.2); Potassium 4.1 mmol/L (3.5-5.1)
[2023-04-30] MEDS: metoclopramide 5 mg/mL SDV 2 mL 10 MG IVP (01:17)
[2023-04-30] MEDS: ketorolac 30 mg/mL INJ 15 MG IVP (01:19)
[2023-04-30 02:21] LABS: Adenovirus Not Detected (NOT DETECT); Chlamydia Pneumoniae Not Detected (NOT DETECT); Coronavirus 229E,HKU1,NL63,OC4 Not Detected (NOT DETECT); Human Metapneumovirus Not Detected (NOT DETECT); Human Rhinovirus/Enterovirus Not Detected (NOT DETECT); Influenza A Not Detected (NOT DETECT); Influenza A H1 Not Detected (NOT DETECT); Influenza A H1-2009 Not Detected (NOT DETECT); Influenza A H3 Not Detected (NOT DETECT); Influenza B Not Detected (NOT DETECT); Mycoplasma Pneumoniae Not Detected (NOT DETECT); Parainfluenza Virus Type 1 Not Detected (NOT DETECT); Parainfluenza Virus Type 2 Not Detected (NOT DETECT); Parainfluenza Virus Type 3 Not Detected (NOT DETECT); Parainfluenza Virus Type 4 Not Detected (NOT DETECT); Respiratory Syncytial Virus A Not Detected (NOT DETECT); Respiratory Syncytial Virus B Not Detected (NOT DETECT); SARS-COV-2 Not Detected (NOT DETECT)
[2023-04-30 02:45] LABS: Bilirubin Urine Neg (Negative); Blood Urine 3+ (Negative); Glucose Urine UA Norm (Normal); Ketones Urine Negative (Negative); Leukocyte Esterase Urine Negative (Negative); Nitrate Urine Negative (Negative); Protein Urine Neg (Negative); Specific Gravity, Urine 1.015 (1.005-1.030); Urine Appearance Clear (CLEAR); Urine Color Yellow (Yellow); Urobilinogen Urine Neg (Negative); pH Urine 6 (5-7)
[2023-04-30 02:46] LABS: Add Urine Culture? No; Add Urine Microscopic? YES; Bacteria Urine TRACE /hpf; Mucus Urine 1+ /hpf
[2023-04-30] MEDS: cefTRIAXone 1,000 MG in sodium chloride 0.9% (plus) 50 ML 100 MG IV (02:50)
[2023-04-30 02:51] VITALS: BP 114/63; PULSE 95; RESP 16; O2SAT 91
[2023-04-30 04:32] VITALS: BP 118/55; PULSE 76; RESP 18; O2SAT 94
== END 2023-04-30 04:10 | disposition home or self-care (01) ==
PROVIDERS: Nurse Practitioner Family; Emergency Provider Emergency Medicine; PCP Family Medicine
DX: J18.9 Pneumonia, unspecified organism (principal); Z20.822 Contact with and (suspected) exposure to COVID-19; K57.90 Diverticulosis of intestine, part unspecified, without perforation or abscess without bleeding; I71.40 Abdominal aortic aneurysm, without rupture, unspecified
CPT/HCPCS: 70450; 71045; 74176; 80053; 81001; 83605; 85025; 86140; 87040; 87486; 87581; 87633; 96365; 96375; 99285; J0696; J1885; J2765; J7040

== ENCOUNTER 2023-08-14 11:56 | Emergency (ER) | payer OTHER, SELFPAY ==
[2023-08-14 12:06] VITALS: BP 157/80; PULSE 59; RESP 16; TEMP 36.7; O2SAT 97; BMI 34.3
--- NOTE | 2023-08-14 13:43 | XRR_ITS ---
PROCEDURE INFORMATION: Exam: XR Left Ankle Exam date and time: 08/14/2023 2:06 PM Age: 73 years old Clinical indication: Pain; Left; Patient HX: Soreness in lt ankle, blood collection at site, HX of adenoid cystic carcinoma; Additional info: Pain / wound TECHNIQUE: Imaging protocol: Radiologic exam of the left ankle. Views: 3 or more views. COMPARISON: No relevant prior studies available. FINDINGS: Bones/joints: Large plantar spur. Bone screw in the navicular. No fracture. Degenerative changes at midfoot forefoot articulation. Soft tissues: Soft tissue swelling. No definite soft tissue gas. XR/XR ankle LT min 3V* [id number] IMPRESSION: 1. Soft tissue swelling. No definite soft tissue gas. 2. No fracture.
--- NOTE | 2023-08-14 13:57 | ED_ITS ---
HPI - Extremity Problem 2 General: Chief complaint: Extremity Problem,Nontraumatic Stated complaint: Left ankle pain/bleeding Time Seen by Provider: 08/14/23 13:42 Source: patient Mode of arrival: ambulatory History of Present Illness: 73-year-old male presents emergency room with complaints of irritation to the medial aspect of the left ankle with superficial problems. He has had problems with varicose veins in the past from his description sounds like he may have had a varicose vein stripping after this he had a irritated area that became open he had a prolonged healing time through a wound care clinic. Recently began to become mildly inflamed and has had some serous drainage she has some callus at the bridge of the sole of the foot just below the medial malleolus on the left he has been applying Vicks to now the underlying skin is gotten a little bit inflamed had some serous drainage no purulent drainage no fever sweats chills sensation lower extremity normal Onset (ago): year(s) Relieving factors: nothing Exacerbating factors: nothing Associated symptoms: Deny chest pain, fever(s) or rash Review of Systems 2 Const: Denies: fever(s) or chills Card: Denies: chest pain Resp: Denies: dyspnea GI: Denies: abdominal pain : Denies: dysuria, urinary frequency or urinary urgency Musc: Denies: neck pain or back pain Skin/Breast: Denies: rash Physical Exam 2 Const: COMMON NORMALS: no acute distress and healthy appearing GENERAL APPEARANCE: cooperative and comfortable ORIENTATION/CONSCIOUSNESS: Yes awake, Yes oriented to person, Yes oriented to place and Yes oriented to time HENMT: COMMON NORMALS: normocephalic, atraumatic and hearing grossly normal bilaterally HEAD & SCALP: normocephalic and atraumatic Resp: COMMON NORMALS: normal respiratory effort, No retractions, No use of accessory muscles and clear to auscultation bilaterally AUSCULTATION: clear to auscultation bilaterally Cardio: COMMON NORMALS: regular rate, regular rhythm and No murmurs present (Cardio) RATE: regular rate RHYTHM: regular rhythm Extremity: OTHER: Medial aspect the left ankle has mild plaque R redness with no induration some serous drainage no active bleeding no signs of abscess. Neuro: SENSORIUM/ORIENTATION: Yes oriented to person, Yes oriented to place and Yes oriented to time Skin: COMMON NORMALS: no rashes or lesions noted GENERAL SKIN EXAM: no rashes or lesions noted Course 2 Vital Signs: Vital signs: Vital Signs Temperature 98.0 F 08/14/23 12:06 Pulse Rate 59 L 08/14/23 12:06 Respiratory Rate 16 08/14/23 12:06 Blood Pressure 157/80 08/14/23 12:06 Pulse Oximetry 97 08/14/23 12:06 Oxygen Delivery Me thod Room Air 08/14/23 12:06 MDM - Extremity (Nontraumatic) Medical Decision Making Also appears chronic with more of a plaque-like appearance with some splitting of the skin. Does not appear to be acutely infected at this point do not think he requires antibiotics will refer to wound care clinic. X-ray shows chronic arthritic changes no evidence of osteomyelitis no evidence of fracture no subcutaneous gas noted Medical Records I reviewed the patient's medical records. Lab Data I reviewed the patient's lab results. 08/14/23 14:22 08/14/23 14:22 Laboratory Results WBC 5.86 10^3/uL (3.29-11.43) 08/14/23 14:22 RBC 4.32 10^6/uL (3.85-5.65) 08/14/23 14:22 Hgb 13.40 g/dL (11.27-16.99) 08/14/23 14:22 Hct 40.5 % (37-53) 08/14/23 14:22 MCV 93.8 fl (82-101) 08/14/23 14:22 MCH 31.0 pg (27-33) 08/14/23 14:22 MCHC 33.1 g/dL (30-55) 08/14/23 14:22 RDW 12.5 % (12.1-15.1) 08/14/23 14:22 Plt Count 180 10^3/cmm (157-399) 08/14/23 14:22 MPV 8.9 fL (7.4-10.4) 08/14/23 14:22 Neut % (Auto) 72.5 % 08/14/23 14:22 Lymph % (Auto) 14.2 % 08/14/23 14:22 Greer % (Auto) 8.7 % 08/14/23 14:22 Eos % (Auto) 4.1 % 08/14/23 14:22 Baso % (Auto) 0.3 % 08/14/23 14:22 Neut # (Auto) 4.25 10^3/uL (1.8-7.7) 08/14/23 14:22 Lymph # (Auto) 0.8 10^3/uL (0.8-4.8) 08/14/23 14:22 Greer # (Auto) 0.5 10^3/uL (0.2-0.9) 08/14/23 14:22 Eos # (Auto) 0.2 10^3/uL (0.0-0.8) 08/14/23 14:22 Baso # (Auto) 0.0 10^3/uL (0.0-0.1) 08/14/23 14:22 Nucleated RBC % (auto) 0 % 08/14/23 14: Nucleated RBCs # 0.0 /100WBC 08/14/23 14:22 Sodium 139 mmol/L (136-145) 08/14/23 14:22 Potassium 4.6 mmol/L (3.5-5.1) 08/14/23 14:22 Chloride 104 mmol/L (98-107) 08/14/23 14:22 Carbon Dioxide 25 mmol/L (22-29) 08/14/23 14:22 Anion Gap 14.6 (5-19) 08/14/23 14:22 BUN 18 mg/dL (8-23) 08/14/23 14:22 Creatinine 1.4 mg/dL (0.7-1.2) H 08/14/23 14:22 GFR Calculation Not Reportable 08/14/23 14:22 Glucose 95 mg/dL (65-115) 08/14/23 14:22 Calculated Osmolality 290 mOsm/kg (285-295) 08/14/23 14:22 Calcium 9.6 mg/dL (8.5-10.5) 08/14/23 14:22 Total Bilirubin 0.6 mg/dL (0.15-1.2) 08/14/23 14:22 AST 11 U/L (0-40) 08/14/23 14:22 ALT 8 U/L (0-41) 08/14/23 14:22 Alkaline Phosphatase 80 U/L (40-130) 08/14/23 14:22 C-Reactive Protein 3.0 mg/L (0.0-4.9) 08/14/23 14:22 Total Protein 7.5 g/dL (6.6-8.7) 08/14/23 14:22 Albumin 4.1 g/dL (3.5-5.2) 08/14/23 14:22 Globulin 3.4 g/dL (1.3-4.6) 08/14/23 14:22 XR interpretation done by ED provider, pending radiology final review Discharge Plan Discharge Patient Disposition: Home Clinical Impression: Chronic foot ulcer Condition: Stable Prescriptions: No Action latanoprost 0.005 % Drops 1 drp ophthalmic (eye) QPM atorvastatin 40 mg Tablet 20 mg PO QPM riboflavin (vitamin B2) 100 mg Tablet 100 mg PO DAILY hydrocodone-acetaminophen 10-325 mg tablet 1 tab PO Q6H PRN (Reason: Pain) levothyroxine 50 mcg Tablet 50 mcg PO QAM clobetasol 0.05 % Ointment 1 applic TOPICAL BID Vitamin D3 10 mcg (400 unit) Tablet 20 mcg PO DAILY alfuzosin 10 mg tablet extended release 24 hr 10 mg PO DAILY timolol maleate 0.5 % Drops, Once Daily 1 drp OPHTHALMIC (EYE) QAM Lubricant Eye 83-15 % Ointment 1 applic OPHTHALMIC (EYE) BEDTIME PRN (Reason: Dry Eyes) diclofenac sodium 1 % Gel See Rx Instructions .ROUTE .COMPLEX Rx Instructions: 4 g topically to affected area 4 times daily for pain or inflamation. No more than 16 g daily to lower extremety and no mor than 8 g daily to upper extremety. max of 32 g daily over all areas. Eliquis 5 mg tablet See Rx Instructions .ROUTE .COMPLEX Rx Instructions: TAKE TWO TABLETS BY MOUTH TWICE A DAY FOR 7 DAYS THEN TAKE 1 TABLET BY MOUTH TWICE A DAY FOR REMAINING TREATMENT Discharge Orders: Discharge ED (Routine); Ordered 08/14/23 Ordered By: Fredy Cruz Referrals: Julio Cesar Theodore [Primary Care Provider] - Discharge Diet: Usual diet Discharge Activity: Increase activity as tolerated Patient Instructions: Opioid Safety, Pain Management Activity Restrictions/Additional Instructions: Thank you for choosing [facility] for your healthcare needs today. Please realize this is an emergency room and that we are providing you with a medical screening exam and this may not be complete and all inclusive of all the testing and or work up that you may need to determine your ailment or severity of your illness. It is very important that you follow up as instructed or that you return to the Emergency Department should you have concerns or if your condition changes or worsens in any way. You are seen today for recurrent foot ulcer. Does not appear to be acutely infected or make referral to the wound clinic for long-term care. Coding Level of Care Code ED [employer] for Ellen Vitale
[2023-08-14 14:30] LABS: Basophils % 0.3 %; Eosinophils # 0.2 10^3/uL (0.0-0.8); Eosinophils % 4.1 %; Hematocrit 40.5 % (37-53); Lymphocytes # 0.8 10^3/uL (0.8-4.8); Lymphocytes % 14.2 %; Mean Corpuscular HGB Conc 33.1 g/dL (30-55); Mean Corpuscular Volume 93.8 fl (82-101); Mean Platelet Volume 8.9 fL (7.4-10.4); Monocytes # 0.5 10^3/uL (0.2-0.9); Monocytes % 8.7 %; Neutrophils # 4.25 10^3/uL (1.8-7.7); Neutrophils % 72.5 %; Nucleated Red Blood Cells % 0 %; Platelet Count 180 10^3/cmm (157-399); Red Blood Count 4.32 10^6/uL (3.85-5.65); Red Cell Distribution Width 12.5 % (12.1-15.1); White Blood Count 5.86 10^3/uL (3.29-11.43)
[2023-08-14 14:44] LABS: Alanine Aminotransferase 8 U/L (0-41); Albumin Level 4.1 g/dL (3.5-5.2); Alkaline Phosphatase 80 U/L (40-130); Anion Gap 14.6 (5-19); Aspartate Amino Transferase 11 U/L (0-40); Blood Urea Nitrogen 18 mg/dL (8-23); Calcium 9.6 mg/dL (8.5-10.5); Carbon Dioxide 25 mmol/L (22-29); Chloride 104 mmol/L (98-107); Globulin 3.4 g/dL (1.3-4.6); Glucose 95 mg/dL (65-115); Osmolality Calculated 290 mOsm/kg (285-295); Potassium 4.6 mmol/L (3.5-5.1); Sodium 139 mmol/L (136-145); Total Bilirubin 0.6 mg/dL (0.15-1.2); Total Protein 7.5 g/dL (6.6-8.7)
[2023-08-14 14:56] VITALS: PULSE 62; O2SAT 98
[2023-08-14 14:57] LABS: Erythrocyte Sedimentation Rate 12 mm/hr (0-10)
--- NOTE | 2023-08-15 07:24 | DCPLANNER ---
Message was sent to wound care clinic on 08/15/23 at 0724. Clinic to contact patient.
--- NOTE | 2023-09-09 12:29 | PC.SOCIAL ---
Wound Care Auth Follow Up email sent to November with [facility] for authorization to see wound care.
== END 2023-08-14 14:58 | disposition home or self-care (01) ==
PROVIDERS: Emergency Provider Family Medicine; PCP Family Medicine
DX: L97.529 Non-pressure chronic ulcer of other part of left foot with unspecified severity (principal); Z79.01 Long term (current) use of anticoagulants
CPT/HCPCS: 36415; 73610; 80053; 85025; 85651; 86140; 99284

== ENCOUNTER → 2023-08-22 13:00 | Outpatient (BNVA) | payer OTHER, SELFPAY | PROVIDERS: PCP Family Medicine; Visit Provider Nurse Practitioner Family | DX: I96 Gangrene, not elsewhere classified (principal); L97.421 Non-pressure chronic ulcer of left heel and midfoot limited to breakdown of skin | CPT/HCPCS: 97597; 97598; 99213 ==

== ENCOUNTER → 2023-08-29 10:23 | Outpatient (BNVA) | payer OTHER, SELFPAY | PROVIDERS: PCP Family Medicine; Visit Provider Nurse Practitioner Family | DX: Z09 Encounter for follow-up examination after completed treatment for conditions other than malignant neoplasm (principal); Z87.2 Personal history of diseases of the skin and subcutaneous tissue | CPT/HCPCS: 99212 ==

== ENCOUNTER 2023-12-17 07:54 | Outpatient (CLI) | payer OTHER, SELFPAY ==
--- NOTE | 2023-12-17 07:59 | MR_ITS ---
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 TECHNIQUE: Multiplanar sequences of the shoulder joint are submitted. Moderate AC joint arthritis. Osteophyte encroachment upon the supraspinatus muscle and tendon. No sub acromial impingement. No os acromion. Partial subluxation and displacement of the biceps tendon from the bicipital groove. No destructive bone lesions within the humeral head. There are a few subchondral cystic changes which appear along the posterior lateral humeral head. Additional subchondral cystic changes with loss of the normal overlying cortex involving the inferior glenoid extending over a length of 3 cm. The subch ondral changes appeared and less likely neoplastic. Extensive involvement along the entire inferior g lenoid. No rotator cuff muscle atrophy or edema. Mild tendinopathy in the supraspinatus tendon. Abnormal sign al within the anterior and inferior labrum. The changes within the inferior labrum are associated wit h the extensive subchondral cystic changes in the glenoid. No normal labrum is identified. Superior l abrum is degenerative but intact. MR/MR shoulder RT wo con* [id number] IMPRESSION: 1. No destructive bone lesions to suggest osteomyelitis involving the visualiz ed bones of the RIGHT shoulder. No prior report to indicate which bone was abno rmal on the PET/CT. 2. Extensive abnormal subchondral cystic changes and loss of cartilage involvi ng the entire inferior posterior glenoid with involvement of the labrum. These findings appear more degenerative and related to osteoarthritis than neoplastic . 3. Partial subluxation of the biceps tendon. 4. Moderate AC joint arthritis.
== END 2023-12-17 07:55 | disposition home or self-care (01) ==
LOC: RAD 07:54
PROVIDERS: PCP Family Medicine; Visit Provider Family Medicine
DX: C07 Malignant neoplasm of parotid gland (principal); M19.011 Primary osteoarthritis, right shoulder
CPT/HCPCS: 73221